=== PATIENT | female | born 1995 | race Hispanic/Latino ===

== ENCOUNTER 2021-02-12 09:17 | Emergency (ER) | payer OTHER ==
[~2021-02-12] VITALS: Ht 162.6 cm; Wt 85.0 kg
[2021-02-12 11:07] LABS: HCG, SERUM QUALITATIVE NEGATIVE (NEGATIVE)
[2021-02-12 11:17] LABS: ALBUMIN 4.4 GM/DL (3.2-5.2); ALT/SGPT 23 U/L (12-78); BILIRUBIN,TOTAL 0.7 MG/DL (0.2-1.0); BLOOD UREA NITROGEN 12 MG/DL (7-18); CALCIUM LEVEL 9.7 MG/DL (8.5-10.1); CARBON DIOXIDE LEVEL 26 MEQ/L (21-32); CHLORIDE LEVEL 108 MEQ/L (98-107); CREATININE FOR GFR 0.58 MG/DL (0.55-1.30); GLOMERULAR FILTRATION RATE > 60.0 (>60); GLUCOSE, FASTING 95 MG/DL (70-100); POTASSIUM SERUM 4.1 MEQ/L (3.5-5.1); SODIUM LEVEL 139 MEQ/L (136-145); TOTAL PROTEIN 7.4 GM/DL (6.4-8.2)
[2021-02-12 11:36] LABS: BASO % 0.6 % (0.0-1.0); EOS # 0.1 10^3/uL (0.0-0.5); EOS % 1.9 % (0.0-3.0); HEMATOCRIT 37.6 % (36.0-47.0); LYMPH # 2.8 10^3/uL (1.5-5.0); LYMPH % 39.7 % (24.0-44.0); MEAN CORPUSCULAR HEMOGLOBIN 26.5 pg (27.0-33.0); MEAN CORPUSCULAR HGB CONC 31.9 g/dl (32.0-36.5); MEAN CORPUSCULAR VOLUME 83.2 fl (80.0-96.0); MONO # 0.6 10^3/uL (0.0-0.8); MONO % 9.1 % (2.0-8.0); NEUTROPHILS # 3.4 10^3/uL (1.5-8.5); NEUTROPHILS % 48.4 % (36.0-66.0); PLATELET COUNT, AUTOMATED 255 10^3/uL (150-450); RED BLOOD COUNT 4.52 10^6/uL (4.00-5.40)
--- NOTE | 2021-02-12 12:51 | REP ---
INDICATION: irregular bleeding/cramping/bleeding x 2 weeks COMPARISON: None. TECHNIQUE: Transabdominal pelvic ultrasound followed by transvaginal examination for better evaluation of the endometrium and adnexa with color Doppler evaluation of the ovaries. FINDINGS: Bladder is unremarkable and measures approximately 6.2 x 3.1 x 4.0 cm. Normal anteverted uterus measures 8.4 x 5.0 x 6.0 cm. The endometrial complex measures 2.1 mm thickness. No discrete uterine or endometrial abnormalities are appreciated. Bilateral ovaries are normal in appearance and vascularity without evidence for torsion. Right ovary measures 4.0 x 1.7 x 2.3 cm and includes 2.8 x 0.7 x 0.9 cm presumed physiologic cyst/follicle; R I = 0.45. Left ovary measures 2.6 x 1.7 x 1.4 cm; R I = 0.59. Small amount of pelvic free fluid is nonspecific. IMPRESSION: Essentially normal pelvic ultrasound. Suspected physiologic cyst/dominant follicle in the right ovary. <Electronically signed by Ham Mcclelland > 02/12/21 [id number]
[2021-02-12 13:40] VITALS: BP 132/77
== END 2021-02-12 13:45 | disposition home or self-care (01) ==
LOC: M ED 09:17
DX: N93.8 Other specified abnormal uterine and vaginal bleeding (principal); R51.9 Headache, unspecified; F32.9 Major depressive disorder, single episode, unspecified

== ENCOUNTER 2021-04-08 10:42 | Emergency (ER) | payer OTHER ==
[~2021-04-08] VITALS: Ht 162.6 cm; Wt 84.3 kg
--- OUTSIDE RECORDS SUMMARY | 2021-04-08 10:50 | CCD ---
Author Author [facility] Organization [facility] Address Unknown Phone Unavailable Care Team Providers Care Butt Trimmer Name Role Phone George MATOS Unavailable Unavailable Re-disclosure Warning The records that you are about to access may contain information from federally-assisted alcohol or drug abuse programs. If such information is present, then the following federally mandated warning applies: This information has been disclosed to you from records protected by federal confidentiality rules (42 CFR part 2). The federal rules prohibit you from making any further disclosure of this information unless further disclosure is expressly permitted by the written consent of the person to whom it pertains or as otherwise permitted by 42 CFR part 2. A general authorization for the release of medical or other information is NOT sufficient for this purpose. The Federal rules restrict any use of the information to criminally investigate or prosecute any alcohol or drug abuse patient.The records that you are about to access may contain highly sensitive health information, the redisclosure of which is protected by Article 27-F of the [facility] Public Health law. If you continue you may have access to information: Regarding HIV / AIDS; Provided by facilities licensed or operated by the [facility] Office of Mental Health; or Provided by the [facility] Office for People With Developmental Disabilities. If such information is present, then the following [facility] mandated warning applies: This information has been disclosed to you from confidential records which are protected by state law. State law prohibits you from making any further disclosure of this information without the specific written consent of the person to whom it pertains, or as otherwise permitted by law. Any unauthorized further disclosure in violation of state law may result in a fine or chcf sentence or both. A general authorization for the release of medical or other information is NOT sufficient authorization for further disc losure. Encounters Encounter Providers Location Date Indications Data Source(s ) Outpatient Attender: DEANA Hawkinsultant: DEANA MATOS 02/03/2021 02:53:44 PM EDT - 02/04/2021 09:39:00 AM EDT [facility] l Patient discharged. Medications No Information Insurance Providers Payer name Policy type / Coverage type Policy ID Covered constitution party ID Covered constitution party's relationship to ambrocio Policy Ambrocio Plan Information [facility] HUMAN [id number] 2 [id number] [facility] HUMANA - O/P [id number] Problems, Conditions, and Diagnoses Code Display Name Description Problem Type Effective Dates Data Source(s) G4489 Other headache syndrome Other headache syndrome Diagno sis 02/04/2021 08:39:[address] [facility] Surgeries/Procedures No Information Results ID Date Data Source [id number] 02/05/2021 12:16:00 [place] [address] PHONE: [phone] FAX: [phone] Name .................. : BIBIANA SANDERS Acct Number.................. : [id number] ROOM. ................. : Number ................... : [id number] Stay type ............. : O/P Discharge Date......... ... : Admit Date ......... : Admit Phys .................... : SHAWNA EAST Date of ....... : 1995 Family Phys ................... : SHAWNA JORDA Phone .................. : [phone] Age ................................ : 25 Film# .................. .:[id number] Sex ................................. : F Unsigned transcriptions are preliminary reports and do not represent a medical or legal document MRI BRAIN W/O CONTRAST [id number] COMPLETE:02/04/21 18:48 KMB [id number] Reason for Exam: 6+ months of daily headaches MRI OF THE BRAIN WITHOUT CONTRAST: INDICATION: Increasing headaches x6 months without history of trauma. FINDINGS: The subarachnoid spaces and ventricular systems are unremarkable. No areas of abnormal signal alteration is seen. No mass effect or midline shift is present. Posterior fossa structures are unremarkable. Orbital contents are unremarkable. Visualized paranasal sinuses are well aerated. IMPRESSION: Unremarkable MRI brain. Electronically Reviewed and Signed By Obie Connell M.D. , 02/05/21 12:16, RC Transcribe Initials: KEN , Transcribe Date: 02/05/21 00:42, Dictation Date: Copy for: SHAWNA Vazquez Copy for: 710 MED REC Page 1 of 1 Name Value Range Interpretation Code Description Data Anahi rce(s) Supporting Document(s) Procedure Social History No Information
[2021-04-08 13:06] LABS: BASO # 0.1 10^3/uL (0.0-0.2); BASO % 0.6 % (0.0-1.0); EOS # 0.1 10^3/uL (0.0-0.5); EOS % 1.1 % (0.0-3.0); HEMATOCRIT 41.8 % (36.0-47.0); HEMOGLOBIN 13.4 g/dl (12.0-15.5); LYMPH # 2.7 10^3/uL (1.5-5.0); LYMPH % 30.2 % (24.0-44.0); MEAN CORPUSCULAR HEMOGLOBIN 26.2 pg (27.0-33.0); MEAN CORPUSCULAR HGB CONC 32.1 g/dl (32.0-36.5); MEAN CORPUSCULAR VOLUME 81.6 fl (80.0-96.0); MONO # 0.5 10^3/uL (0.0-0.8); MONO % 6.1 % (2.0-8.0); NEUTROPHILS # 5.5 10^3/uL (1.5-8.5); NEUTROPHILS % 61.7 % (36.0-66.0); PLATELET COUNT, AUTOMATED 320 10^3/uL (150-450); RED BLOOD COUNT 5.12 10^6/uL (4.00-5.40); WHITE BLOOD COUNT 8.9 10^3/uL (4.0-10.0)
[2021-04-08 13:35] LABS: ALBUMIN 4.5 GM/DL (3.2-5.2); ALT/SGPT 29 U/L (12-78); BILIRUBIN,DIRECT 0.2 MG/DL (0.0-0.2); BILIRUBIN,TOTAL 0.9 MG/DL (0.2-1.0); HCG, SERUM QUALITATIVE NEGATIVE (NEGATIVE); LIPASE 127 U/L (73-393); TOTAL PROTEIN 8.2 GM/DL (6.4-8.2)
[2021-04-08] MEDS ORDERED: KETOROLAC 30 MG/ML 1ML VIAL IM ONE (14:25)
--- NOTE | 2021-04-08 14:45 | REP ---
INDICATION: flank pain left. COMPARISON: None. TECHNIQUE: Standard helical technique without intravenous contrast administration. Stone protocol utilized secondary to left flank pain. FINDINGS: The lung bases are clear. Limited evaluation of the solid intra-organs and gallbladder show no gross abnormalities. Limited evaluation of the pancreas, adrenal glands, and kidneys show no gross abnormalities. There is no nephroureterolithiasis, hydronephrosis, or hydroureter. There are no urinary bladder calcifications. Limited evaluation of the bowel loops and the mesenteries show no gross abnormalities. There is no evidence of free fluid or free air. There is no evidence of a mass or adenopathy. Limited evaluation of the abdominal aorta and para-aortic regions show no gross abnormalities. The osseous structures are within normal limits. IMPRESSION: CT findings are within normal limits. <Electronically signed by Manjit Gregory > 04/08/21 [id number]
[2021-04-08 14:54] LABS: BLOOD UREA NITROGEN 12 MG/DL (7-18); CALCIUM LEVEL 9.7 MG/DL (8.5-10.1); CARBON DIOXIDE LEVEL 26 MEQ/L (21-32); CHLORIDE LEVEL 107 MEQ/L (98-107); CREATININE FOR GFR 0.63 MG/DL (0.55-1.30); GLOMERULAR FILTRATION RATE > 60.0 (>60); GLUCOSE, FASTING 89 MG/DL (70-100); POTASSIUM SERUM 4.2 MEQ/L (3.5-5.1); SODIUM LEVEL 139 MEQ/L (136-145)
[2021-04-08] MEDS ORDERED: METH-1164 PO (15:30)
[2021-04-08 15:50] VITALS: BP 126/75
== END 2021-04-08 15:53 | disposition home or self-care (01) ==
LOC: M ED 10:42
DX: R10.9 Unspecified abdominal pain (principal); M54.5 Low back pain; R51.9 Headache, unspecified; F32.9 Major depressive disorder, single episode, unspecified; Z87.891 Personal history of nicotine dependence
CPT/HCPCS: 36415; 74176; 80048; 80076; 81001; 83690; 84703; 85025; 87086; 96372; 99284; J1885

== ENCOUNTER → 2021-04-25 | Outpatient (CLI) | payer OTHER ==
[~2021-04-25] MED LIST: METH-1164 PO
--- NOTE | 2021-04-25 15:33 | REP ---
INDICATION: LOW BACK PAIN. COMPARISON: None. TECHNIQUE: Three AP and lateral views lumbar spine. FINDINGS: There is no compression fracture. There is normal lumbar lordosis and alignment. The disc spaces are normal in thickness. The posterior elements are intact. IMPRESSION: Negative exam lumbosacral spine. <Electronically signed by Damian Acuna > 04/25/21 [id number]
== END ==
LOC: M SOG 14:59
PROVIDERS: ATTEND Orthopaedic Surgery
DX: M54.5 Low back pain (principal)

== ENCOUNTER 2022-01-06 10:41 | Outpatient (CLI) | payer OTHER ==
[~2022-01-06] VITALS: Ht 162.6 cm; Wt 87.5 kg
[2022-01-06] MEDS ORDERED: PRENTAB9 PO (11:25)
[2022-01-06] MEDS ORDERED: HYDR-643 PO (11:25)
[2022-01-06 11:26] VITALS: BP 115/61
== END 2022-01-06 11:45 | disposition home or self-care (01) ==
LOC: M LDO 10:41
PROVIDERS: ATTEND Advanced Practice Midwife
DX: O36.8120 Decreased fetal movements, second trimester, not applicable or unspecified (principal); Z3A.20 20 weeks gestation of pregnancy; O32.1XX0 Maternal care for breech presentation, not applicable or unspecified
CPT/HCPCS: 76815; G0378

== ENCOUNTER 2022-02-23 10:40 | Outpatient (CLI) | payer OTHER ==
[~2022-02-23] VITALS: Ht 162.6 cm; Wt 88.7 kg
[~2022-02-23 10:40] MED LIST changes: +HYDR-643 PO; +PRENTAB9 PO
[2022-02-23 11:02] VITALS: BP 129/66
[2022-02-23] MEDS ORDERED: HOME MED LIST COMPLETE! XX SCH (11:10)
[2022-02-23] MEDS ORDERED: PENI500T PO (11:11)
[2022-02-23 12:53] VITALS: BP 142/74
[2022-02-23 15:23] VITALS: BP 120/62
== END 2022-02-23 15:30 | disposition home or self-care (01) ==
LOC: M LDO 10:40
PROVIDERS: ATTEND Obstetrics & Gynecology
DX: O26.892 Other specified pregnancy related conditions, second trimester (principal); R10.2 Pelvic and perineal pain; Z3A.26 26 weeks gestation of pregnancy
CPT/HCPCS: 59025; 76811; 76817; 76820; 81001; 87070; G0463

== ENCOUNTER 2022-05-17 06:08 | Outpatient (CLI) | payer OTHER ==
[~2022-05-17] VITALS: Ht 162.6 cm; Wt 89.5 kg
[~2022-05-17 06:08] MED LIST changes: +PENI500T PO
[2022-05-17 06:16] VITALS: BP 132/75
[2022-05-17] MEDS ORDERED: FAMO10TA50 PO (06:43)
[2022-05-17 07:09] VITALS: BP 131/77
== END 2022-05-17 07:22 | disposition home or self-care (01) ==
LOC: M LDO 06:08
PROVIDERS: ATTEND Advanced Practice Midwife
DX: O47.1 False labor at or after 37 completed weeks of gestation (principal); Z3A.39 39 weeks gestation of pregnancy
CPT/HCPCS: 59025; 76815; G0463

== ENCOUNTER 2022-05-18 05:28 | Inpatient (IN) | payer OTHER ==
[2022-05-18] VITALS (10 sets, daily range): BP systolic 105–132; BP diastolic 58–72
[~2022-05-18] VITALS: Ht 162.6 cm; Wt 90.4 kg
[~2022-05-18 05:28] MED LIST changes: +FAMO10TA50 PO
[2022-05-18] MEDS ORDERED: OXYTOCIN INJ 10 UNITS/ML VIAL (J2590) As Ordered ONE (05:39)
[2022-05-18] MEDS ORDERED: OXYTOCIN 30 UNITS IN 0.9% NaCl 500ML IV BAG (J2590) As Ordered ONE (05:40)
[2022-05-18 05:51] LABS: HEMATOCRIT 38.4 % (36.0-47.0); HEMOGLOBIN 12.7 g/dl (12.0-15.5); MEAN CORPUSCULAR HEMOGLOBIN 26.8 pg (27.0-33.0); MEAN CORPUSCULAR HGB CONC 33.1 g/dl (32.0-36.5); PLATELET COUNT, AUTOMATED 222 10^3/uL (150-450); RED BLOOD COUNT 4.74 10^6/uL (4.00-5.40); WHITE BLOOD COUNT 13.5 10^3/uL (4.0-10.0)
[2022-05-18] MEDS ORDERED: LIDOCAINE 1% MDV 20ML VIAL As Ordered ONE (06:02)
[2022-05-18] MEDS ORDERED: LIDOCAINE 1% MDV 20ML VIAL SC ONE (06:50)
[2022-05-18] MEDS ORDERED: OXYTOCIN DRIP 30 UNITS in IV 1 EA IV SCH ×2 (06:50→07:45)
[2022-05-18] MEDS ORDERED: PENICILLIN G POTASSIUM 5 MU IV 5 MU in D5W MINI-BAG PLUS 100 ML IV STA (07:06)
[2022-05-18] MEDS ORDERED: METHYLERGONOVINE MALEATE 0.2 MG/ML VIAL (J2210) IM PRN (07:45)
[2022-05-18] MEDS ORDERED: ACETAMINOPHEN TAB 650MG DOSE (2X325MG) PO PRN (07:45)
[2022-05-18] MEDS ORDERED: ANUSOL HC CREAM 30GM TOP PRN (07:45)
[2022-05-18] MEDS ORDERED: METHYLERGONOVINE MALEATE 0.2 MG TAB PO PRN (07:45)
[2022-05-18] MEDS ORDERED: IBUPROFEN 600MG TAB PO PRN (07:45)
[2022-05-18] MEDS ORDERED: RHOGAM 300 MCG (1500 IU) INJ (J2790) IM SCH (07:45)
[2022-05-18] MEDS ORDERED: DIBUCAINE 1% OINTMENT 30GM TOP PRN (07:45)
[2022-05-18] MEDS: IBUPROFEN 800 MG TAB PO PRN (08:14)
[2022-05-18] MEDS: PRENATAL VITAMINS CHEWABLE TABLET PO SCH (09:00)
[2022-05-18] MEDS: DOCUSATE SODIUM 100MG CAPSULE PO SCH ×2 (09:00→20:55)
[2022-05-18] MEDS ORDERED: PEN G POT 3,000,000 UNIT/50 ML 3,000,000 UNIT in IV 1 EA IV SCH (11:10)
[2022-05-18] MEDS: ACETAMINOPHEN 500 MG TAB PO PRN ×2 (12:10→19:56)
[2022-05-19] MEDS: ACETAMINOPHEN 500 MG TAB PO PRN (05:45)
[2022-05-19 06:00] VITALS: BP 112/63
[2022-05-19 06:53] LABS: MEAN CORPUSCULAR HEMOGLOBIN 26.8 pg (27.0-33.0); MEAN CORPUSCULAR HGB CONC 31.5 g/dl (32.0-36.5); MEAN CORPUSCULAR VOLUME 85.2 fl (80.0-96.0); PLATELET COUNT, AUTOMATED 223 10^3/uL (150-450); RED BLOOD COUNT 3.99 10^6/uL (4.00-5.40)
[2022-05-19 07:02] LABS: HEMOGLOBIN 10.7 g/dl (12.0-15.5)
[2022-05-19] MEDS: PRENATAL VITAMINS CHEWABLE TABLET PO SCH (08:20)
[2022-05-19] MEDS: DOCUSATE SODIUM 100MG CAPSULE PO SCH ×2 (08:20→20:13)
[2022-05-19] MEDS: IBUPROFEN 800 MG TAB PO PRN (16:10)
[2022-05-19 18:00] VITALS: BP 112/57
[2022-05-20] MEDS: IBUPROFEN 800 MG TAB PO PRN (04:48)
[2022-05-20 06:00] VITALS: BP 113/67
[2022-05-20] MEDS: DOCUSATE SODIUM 100MG CAPSULE PO SCH (08:19)
[2022-05-20] MEDS: PRENATAL VITAMINS CHEWABLE TABLET PO SCH (08:19)
[2022-05-20] MEDS ORDERED: MEASLES,MUMPS,RUBELLA VACCINE INJ (MMR-II) (90707) SC.IMMUN ONE (09:00)
[2022-05-20] MEDS: ACETAMINOPHEN 500 MG TAB PO PRN (09:30)
== END 2022-05-20 10:50 | disposition home or self-care (01) | DRG 807 ==
LOC: M LDI 05:28 → M OBS 10:05
PROVIDERS: ADMIT Obstetrics & Gynecology; ATTEND Obstetrics & Gynecology
PROC: 10E0XZZ Delivery of Products of Conception, External Approach (ICD-10-PCS; principal; 2022-05-18)
DX: O62.3 Precipitate labor (principal); Z37.0 Single live birth; Z3A.39 39 weeks gestation of pregnancy; O99.344 Other mental disorders complicating childbirth; F32.A Depression, unspecified; K04.7 Periapical abscess without sinus; O99.62 Diseases of the digestive system complicating childbirth; O99.824 Streptococcus B carrier state complicating childbirth

== ENCOUNTER 2022-10-07 12:24 | Emergency (ER) | payer OTHER ==
[2022-10-07 12:25] VITALS: BP 139/83
[2022-10-07] MEDS ORDERED: FLUC150T9 (12:33)
[2022-10-07 13:13] LABS: BASO # 0.1 10^3/uL (0.0-0.2); BASO % 0.6 % (0.0-1.0); EOS # 0.1 10^3/uL (0.0-0.5); HEMATOCRIT 40.3 % (36.0-47.0); HEMOGLOBIN 12.7 g/dl (12.0-15.5); LYMPH # 2.6 10^3/uL (1.5-5.0); LYMPH % 28.3 % (24.0-44.0); MEAN CORPUSCULAR HGB CONC 31.5 g/dl (32.0-36.5); MEAN CORPUSCULAR VOLUME 85.6 fl (80.0-96.0); MONO # 0.6 10^3/uL (0.0-0.8); MONO % 6.1 % (2.0-8.0); NEUTROPHILS # 5.8 10^3/uL (1.5-8.5); NEUTROPHILS % 63.7 % (36.0-66.0); PLATELET COUNT, AUTOMATED 282 10^3/uL (150-450); RED BLOOD COUNT 4.71 10^6/uL (4.00-5.40)
[2022-10-07 13:21] LABS: LIPASE 38 U/L (12-53)
[2022-10-07 13:29] LABS: ALBUMIN 4.1 G/DL (3.2-5.2); ALKALINE PHOSPHATASE 91 U/L (46-116); ALT/SGPT 44 U/L (7.0-40); AST/SGOT 22 U/L (<34); BILIRUBIN,DIRECT 0.2 MG/DL (<0.4); BILIRUBIN,TOTAL 0.6 MG/DL (0.3-1.2); BLOOD UREA NITROGEN 17 MG/DL (9-23); CALCIUM LEVEL 9.7 MG/DL (8.5-10.1); CARBON DIOXIDE LEVEL 28 MMOL/L (20-31); CHLORIDE LEVEL 107 MMOL/L (98-107); CREATININE FOR GFR 0.59 MG/DL (0.55-1.30); GLOMERULAR FILTRATION RATE > 60.0 (>60); GLUCOSE, FASTING 107 MG/DL (60-100); POTASSIUM SERUM 4.5 MMOL/L (3.5-5.1); SODIUM LEVEL 142 MMOL/L (136-145)
[2022-10-07 14:01] LABS: HCG, SERUM QUALITATIVE NEGATIVE (NEGATIVE)
[2022-10-07 16:26] LABS: GC DNA AMPLIFICATION NEGATIVE (NEGATIVE)
[2022-10-07 18:24] LABS: TOTAL PROTEIN 7.5 G/DL (5.7-8.2)
== END 2022-10-07 16:13 | disposition home or self-care (01) ==
LOC: M ED 12:24
DX: R10.30 Lower abdominal pain, unspecified (principal); J06.9 Acute upper respiratory infection, unspecified; F32.A Depression, unspecified

== ENCOUNTER → 2023-08-05 | Outpatient (REF) | payer OTHER ==
[~2023-08-05] MED LIST changes: +FLUC150T9
== END ==
LOC: M LAB REF 12:19
PROVIDERS: ATTEND Obstetrics & Gynecology
DX: R30.0 Dysuria (principal)

== ENCOUNTER 2023-10-08 11:27 | Day surgery (SDC) | payer OTHER ==
[~2023-10-08] VITALS: Ht 162.6 cm; Wt 85.7 kg
[~2023-10-08 11:27] MED LIST changes: +ACET-840 PO; +CETI10CH PO; +FLUT15.820; +LR 1,000 ML IV SCH; +ONDANSETRON 4MG 2ML VIAL IV PRN; +oxyCODONE 5MG TAB PO PRN
[2023-10-08] MEDS ORDERED: ROCURONIUM BROMIDE 50MG/5ML VIAL As Ordered ONE (11:56)
[2023-10-08] MEDS ORDERED: LIDOCAINE 2% 100MG/5ML SDV (FOR ANES.) As Ordered ONE (11:56)
[2023-10-08] MEDS ORDERED: ONDANSETRON 4MG 2ML VIAL As Ordered ONE (11:56)
[2023-10-08] MEDS ORDERED: fentaNYL 100 MCG/2 ML INJECTION As Ordered ONE (11:56)
[2023-10-08] MEDS ORDERED: MIDAZOLAM INJ 2MG/2ML VIAL As Ordered ONE (11:56)
[2023-10-08] MEDS ORDERED: propofoL 200 MG/20 ML VIAL As Ordered ONE (11:56)
[2023-10-08 12:17] LABS: BLOOD UREA NITROGEN 10 MG/DL (9-23); CALCIUM LEVEL 8.9 MG/DL (8.5-10.1); CARBON DIOXIDE LEVEL 28 MMOL/L (20-31); CHLORIDE LEVEL 106 MMOL/L (98-107); CREATININE FOR GFR 0.56 MG/DL (0.55-1.30); GLOMERULAR FILTRATION RATE > 60.0 (>60); GLUCOSE, FASTING 98 MG/DL (60-100); POTASSIUM SERUM 4.2 MMOL/L (3.5-5.1); SODIUM LEVEL 139 MMOL/L (136-145)
[2023-10-08] MEDS: ceFAZolin SOD 2 GM in IV 1 EA IV ONE (12:20)
[2023-10-08] MEDS ORDERED: LR 1,000 ML IV SCH ×2 (12:40→13:55)
[2023-10-08] MEDS ORDERED: SUGAMMADEX SODIUM 500 MG/5 ML VIAL (BRIDION) As Ordered ONE (13:24)
[2023-10-08] MEDS ORDERED: KETOROLAC 60MG 2ML VIAL As Ordered ONE (13:24)
[2023-10-08] MEDS ORDERED: ACETAMINOPHEN 1000MG 100ML IV BAG As Ordered ONE (13:24)
[2023-10-08] MEDS ORDERED: ONDANSETRON 4MG 2ML VIAL IV PRN (13:55)
[2023-10-08] MEDS ORDERED: fentaNYL 100 MCG/2 ML INJECTION IV PRN (13:55)
[2023-10-08] MEDS ORDERED: NS 1,000 ML IV SCH (14:15)
[2023-10-08] MEDS: traMADol 50 MG TAB PO PRN (14:19)
[2023-10-08 14:40] VITALS: BP 129/68; TEMP 99.1; O2SAT 100
== END 2023-10-08 15:10 | disposition home or self-care (01) ==
LOC: M SDC 11:27
PROVIDERS: ATTEND Surgery
DX: K80.10 Calculus of gallbladder with chronic cholecystitis without obstruction (principal); Z90.49 Acquired absence of other specified parts of digestive tract
CPT/HCPCS: 36415; 47562; 80048; 81025; 88304; J0131; J0665; J0690; J1100; J1885; J2250; J2405; J3010

== ENCOUNTER 2023-12-16 09:58 | Day surgery (SDC) | payer OTHER ==
[~2023-12-16] VITALS: Ht 162.6 cm; Wt 86.6 kg
[~2023-12-16 09:58] MED LIST changes: +ASCO1TAB5 PO; +CALC500T52 PO; -LR 1,000 ML IV SCH; -ONDANSETRON 4MG 2ML VIAL IV PRN; +PROB250C PO; +VITA100065 PO; +VITA500075 PO; -oxyCODONE 5MG TAB PO PRN
[2023-12-16] MEDS: NS 1,000 ML IV ONE (10:19)
[2023-12-16] MEDS ORDERED: LIDOCAINE 2% 100MG/5ML SDV (FOR ANES.) As Ordered ONE (11:34)
[2023-12-16] MEDS ORDERED: propofoL 200 MG/20 ML VIAL As Ordered ONE (11:34)
[2023-12-16 11:55] VITALS: TEMP 97.8
[2023-12-16 12:10] VITALS: BP 131/89; O2SAT 100
== END 2023-12-16 12:18 | disposition home or self-care (01) ==
LOC: M OPP 09:58
PROVIDERS: ATTEND Surgery
DX: K62.89 Other specified diseases of anus and rectum (principal); Z90.49 Acquired absence of other specified parts of digestive tract

== ENCOUNTER → 2025-04-30 | Outpatient (CLI) | payer OTHER ==
[~2025-04-30] MED LIST changes: +AZEL137S8 NARES
== END ==
LOC: M RAD 17:24
PROVIDERS: ATTEND Physician Assistant Medical
DX: J32.0 Chronic maxillary sinusitis (principal)